=== PATIENT | female | born 1980 | race Caucasian/White ===

== ENCOUNTER 2017-01-06 17:54 | Outpatient (CLI) | payer OTHER ==
--- NOTE | 2017-01-06 19:07 | Diagnostic Imaging Report ---
TAMERA JAIN [facility] [address] [facility].[address] [id number] Report Submission Date: Jan 06, 2017 6:47:09 PM [employer] Patient Study Name: ANISA HUA Date: Jan 06, 2017 6:07:53 PM [employer] Modality Type: CR Gender: F Description: CHEST : 84 Institution: [facility] Physician: TAMERA JAIN Chest -two views CLINICAL HISTORY: Upper chest wall pain and discomfort for 2 months. FINDINGS: Examination of the chest in PA and lateral views with no prior film for comparison demonstrates lungs to be clear. Cardiovascular and mediastinal silhouettes are within normal limits. The bony thorax is intact. IMPRESSION: No active disease. Electronically signed on Jan 06, 2017 6:47:09 PM [employer]CEL [employer] OFFICER by: Shiraz FLAHERTY
== END 2017-01-06 17:59 | disposition home or self-care (01) ==
LOC: RAD 17:54
PROVIDERS: ATTEND Family Medicine
DX: R07.89 Other chest pain (principal)
CPT/HCPCS: 71020

== ENCOUNTER 2017-01-13 09:56 | Outpatient (CLI) | payer OTHER ==
--- NOTE | 2017-01-13 13:48 | Diagnostic Imaging Report ---
[facility] [address] [facility].[address] [id number] Report Submission Date: Jan 13, 2017 1:32:52 PM BUSINESS DEVELOPMENT ASSOCIATE Patient Study Name: ANISA HUA Date: Jan 13, 2017 10:17:24 AM BUSINESS DEVELOPMENT ASSOCIATE Modality Type: CT\SR Gender: F Description: CT CHEST W/ CONTRAST : 84 Institution: [facility] Physician TAMERA JAIN - ALESHA Computed tomography of the chest with contrast HISTORY: Anterior chest wall pain FINDINGS: Transverse chest sections are obtained after 80 mL intravenous Omnipaque 350. The following nodules are observed: - 4 mm minor fissural - 4 mm left upper lobe - 8 x 13 mm right middle lobe - 9 mm, 5 mm, and 4 mm posterior left lower lobe - 3 mm left major fissural - 4 mm lingular. There is no evidence of infiltrate or pleural effusion. Mediastinal structures and upper abdominal structures are normal. The gallbladder is partially contracted. There is no evidence of mediastinal or hilar lymphadenopathy. Osseous chest wall structures are within normal limits. IMPRESSION: Numerous smooth bilateral pulmonary nodules, the largest measuring 13 mm in the right middle lobe. Recommend noncontrast chest CT follow-up in 3 months or PET- CT since the largest nodule in the right middle lobe exhibits a mean diameter of 10 mm. Electronically signed on Jan 13, 2017 1:32:52 PM BUSINESS DEVELOPMENT ASSOCIATE by: Neptali FLAHERTY
== END 2017-01-13 09:57 ==
LOC: RAD 09:56
PROVIDERS: ATTEND Family Medicine
DX: R07.89 Other chest pain (principal)
CPT/HCPCS: 71260; Q9966